=== PATIENT | male | born 1985 | race Caucasian/White ===

== ENCOUNTER 2020-03-05 18:06 | Emergency (ER) | payer BC, OTHER ==
[2020-03-05 18:19] VITALS: BP 169/96; PULSE 85
[2020-03-05] MEDS ORDERED: FLU VACC QS2020-21(6MOS UP)/PF 60 MCG/0.5 ML SYRINGE IM ONE (18:30)
[2020-03-05] MEDS ORDERED: Aspirin 81 MG Tab.Chew PO ONE (18:57)
--- NOTE | 2020-03-05 18:57 | EDM.PDOC ---
ED HPI GENERAL MEDICAL PROBLEM - General Chief Complaint: Chest Pain Stated Complaint: PAIN RIGHT ARM CHEST PAIN Time Seen by Provider: 03/05/20 18:19 Source of Information: Reports: Patient History Limitations: Reports: No Limitations - History of Present Illness INITIAL COMMENTS - FREE TEXT/NARRATIVE: Patient is a 34-year-old male presenting to the emergency department with acute onset of right sided chest and shoulder pain approximately 1-1/2 hours prior to presenting to the ER. He states that he was washing dishes when he started developed some discomfort in his right shoulder. He went and sat down for a while. States the pain progressively moved into his right chest. Describes it as a tightness. Pain has improved somewhat but is still there. He does not describe it as being overly painful but "he knows that it is there". He denies any past history of cardiac abnormalities or any other significant cardiac history. He has not done any heavy lifting or other activities out of the normal for him. He does have a fairly strong family history of NM's. States his dad had his first heart attack in his early 40s as did his grandfather. He denies any shortness of breath or diaphoresis associated with this. He is not taking any medications for pain. Right Chest Pain Score (Numeric/FACES): 5 - Related Data Allergies Allergy/AdvReac Type Severity Reaction Status Date / Time No Known Allergies Allergy Verified 03/05/20 18:19 Home Meds: Home Meds . [No Known Home Meds] 03/05/20 [History] Past Medical History - Past Health History Medical/Surgical History: Denies Medical/Surgical History Endocrine/Metabolic History: Reports: Obesity/BMI 30+ Social & Family History - Tobacco Use Smoking Status *Q: Current Every Day Smoker Years of Tobacco use: 1 Packs/Tins Daily: 0.2 - Caffeine Use Caffeine Use: Reports: None - Recreational Drug Use Recreational Drug Use: No ED ROS GENERAL - Review of Systems Review Of Systems: See Below Constitutional: Reports: No Symptoms. Denies: Fever, Chills, Weakness HEENT: Reports: No Symptoms Respiratory: Reports: No Symptoms. Denies: Shortness of Breath, Cough Cardiovascular: Reports: Chest Pain. Denies: Dyspnea on Exertion, Edema, Lightheadedness, Palpitations, Syncope Endocrine: Reports: No Symptoms GI/Abdominal: Reports: No Symptoms. Denies: Abdominal Pain, Nausea, Vomiting : Reports: No Symptoms Musculoskeletal: Reports: Shoulder Pain (right) Skin: Reports: No Symptoms Neurological: Reports: No Symptoms Psychiatric: Reports: No Symptoms Hematologic/Lymphatic: Reports: No Symptoms Immunologic: Reports: No Symptoms ED EXAM, GENERAL - Physical Exam Exam: See Below General Appearance: Alert, WD/WN, No Apparent Distress Respiratory/Chest: No Respiratory Distress, Lungs Clear, Normal Breath Sounds, No Accessory Muscle Use, Chest Non-Tender Cardiovascular: Normal Peripheral Pulses, Regular Rate, Rhythm, No Edema, No Gallop, No JVD, No Murmur, No Rub GI/Abdominal: Normal Bowel Sounds, Soft, Non-Tender, No Organomegaly, No Distention, No Abnormal Bruit, No Mass Neurological: Alert, Oriented, CN II-XII Intact, Normal Cognition, Normal Gait, Normal Reflexes, No Motor/Sensory Deficits Psychiatric: Normal Affect, Normal Mood Skin Exam: Warm, Dry, Intact, Normal Color, No Rash EKG INTERPRETATION EKG Date: 03/05/20 Time: 18:30 Rhythm: NSR Rate (Beats/Min): 75 [place]: Normal P-Wave: Present QRS: Normal ST-T: Normal QT: Normal EKG Interpretation Comments: Sinus rhythm at 75/min Consider left atrial hypertrophy Otherwise normal EKG EKG interpreted by Dr. Elma MAHONEY. Course - Vital Signs Last Recorded V/S: Last Vital Signs Temp 96.6 F L 03/05/20 18:17 Pulse 85 03/05/20 18:17 Resp 16 03/05/20 18:17 BP 169/96 H 03/05/20 18:17 Pulse Ox 96 03/05/20 18:17 - Orders/Labs/Meds Orders: Active Orders 24 hr Category Date Time Status EKG Documentation Completion [RC] STAT Care 03/05/20 18:24 Active Influenza Vaccine Charge [RC] .DISCHARGE Care 03/05/20 18:21 Active Chest 2V [CR] Stat Exams 03/05/20 18:24 Taken Labs: Laboratory Tests 03/05/20 03/05/20 03/05/20 Range/Units 18:45 18:45 18:45 WBC 9.59 H (4.23-9.07) K/mm3 RBC 5.15 (4.63-6.08) M/mm3 Hgb 14.6 (13.7-17.5) gm/dl Hct 44.9 (40.1-51.0) % MCV 87.2 (79.0-92.2) fl MCH 28.3 (25.7-32.2) pg MCHC 32.5 (32.2-35.5) g/dl RDW Std Deviation 42.4 (35.1-43.9) fL Plt Count 196 (163-337) K/mm3 MPV 10.9 (9.4-12.3) fl Neut % (Auto) 63.2 (34.0-67.9) % Lymph % (Auto) 25.0 (21.8-53.1) % [place] % (Auto) 7.6 (5.3-12.2) % Eos % (Auto) 3.8 (0.8-7.0) Baso % (Auto) 0.2 (0.1-1.2) % Neut # (Auto) 6.06 H (1.78-5.38) K/mm3 Lymph # (Auto) 2.40 (1.32-3.57) K/mm3 [place] # (Auto) 0.73 (0.30-0.82) K/mm3 Eos # (Auto) 0.36 (0.04-0.54) K/mm3 Baso # (Auto) 0.02 (0.01-0.08) K/mm3 D-Dimer, Quantitative 0.28 (0.19-0.50) mg/L Sodium 142 (136-145) mEq/L Potassium 3.9 (3.5-5.1) mEq/L Chloride 104 (98-107) mEq/L Carbon Dioxide 26 (21-32) mEq/L Anion Gap 15.9 H (5-15) BUN 17 (7-18) mg/dL Creatinine 1.2 (0.7-1.3) mg/dL Est Cr Clr Drug Dosing 111.38 mL/min Estimated GFR (MDRD) > 60 (>60) mL/min BUN/Creatinine Ratio 14.2 (14-18) Glucose 101 (74-106) mg/dL Calcium 8.8 (8.5-10.1) mg/dL Total Bilirubin 0.4 (0.2-1.0) mg/dL AST 24 (15-37) U/L ALT 47 (16-63) U/L Alkaline Phosphatase 39 L (46-116) U/L Troponin I < 0.017 (0.00-0.056) ng/mL C-Reactive Protein 1.1 H* (<1.0) mg/dL Total Protein 7.1 (6.4-8.2) g/dl Albumin 3.9 (3.4-5.0) g/dl Globulin 3.2 gm/dL Albumin/Globulin Ratio 1.2 (1-2) Meds: Medications Discontinued Medications Generic Name Dose Route Start Last Admin Trade Name Rupali PRN Reason Stop Dose Admin Aspirin 324 mg 03/05/20 18:57 Aspirin PO 03/05/20 18:58 ONETIME ONE Influenza Virus Vaccine 1 each 03/05/20 18:21 Pharmacy To Dose - Influenza Vaccine IM 03/05/20 18:22 ONETIME ONE Influenza Virus Vaccine 60 mcg 03/05/20 18:30 03/05/20 18:36 Fluzone Quad [id number] Syringe IM 03/05/20 18:31 60 mcg .ONCE ONE Administration - Re-Assessments/Exams Free Text/Narrative Re-Assessment/Exam: Patient is a 34-year-old male presenting to the emergency department with complaints of right shoulder discomfort and tightness in his right chest. Symptoms began about an hour and a half prior to coming to the ER. Pain has improved but he states that he can still feel that it is there. Denies any significant cardiac history, however he does have a family history of MIs at a fairly young age. I have ordered a CBC, CMP, CRP, troponin, d-dimer, 2 view chest x-ray, and EKG. 03/05/20 20:00 Hematology was grossly unremarkable. D-dimer was normal. Troponin was less than 0.017. Chest x-ray showed no acute abnormalities. EKG showed no acute abnormalities.I recommended that he stay to have a repeat troponin drawn at around 2100 to ensure there is no cardiac involvement; however, he declined. Stated "I am not overly concerned with it ". Discussed with him that if he should experience any new or worsening symptoms of concern, he should return to the emergency department. He agreed to this. Discharge instructions as documented. Departure - Departure Time of Disposition: 20:01 Disposition: Home, Self-Care 01 Condition: Good Clinical Impression: Atypical chest pain Instructions: Nonspecific Chest Pain, Adult Referrals: PCP,None [Primary Care Provider] - Forms: ED Department Discharge Additional Instructions: You were seen in the emergency department this evening for pain to your right shoulder as well as tightness in your right chest. Work-up included blood work, an EKG of your heart, and a chest x-ray. Your work-up was found to be normal. There was no evidence that you are having a heart attack or that there is a blood clot in your lungs. It was recommended that we repeat check a cardiac enzyme around 9 PM this evening to ensure that it is not trending upward, however this was declined. Recommend that you continue to monitor your symptoms at home. If you should experience any new or worsening symptoms of concern, please do not hesitate to return to the emergency department for reevaluation. Sepsis Event Note (ED) - Evaluation Sepsis Screening Result: No Definite Risk - Focused Exam Vital Signs: Vital Signs Temp Pulse Resp BP Pulse Ox 03/05/20 18:17 96.6 F L 85 16 169/96 H 96 - My Orders Last 24 Hours: My Active Orders 03/05/20 18:21 Influenza Vaccine Charge [RC] .DISCHARGE 03/05/20 18:24 EKG Documentation Completion [RC] STAT Chest 2V [CR] Stat - Assessment/Plan Last 24 Hours: My Active Orders 03/05/20 18:21 Influenza Vaccine Charge [RC] .DISCHARGE 03/05/20 18:24 EKG Documentation Completion [RC] STAT Chest 2V [CR] Stat
== END 2020-03-05 20:33 | disposition home or self-care (01) ==
LOC: JD.ED 18:06
DX: R07.89 Other chest pain (principal); M25.511 Pain in right shoulder; Z23 Encounter for immunization; E66.9 Obesity, unspecified; Z68.41 Body mass index [BMI] 40.0-44.9, adult; F17.210 Nicotine dependence, cigarettes, uncomplicated
CPT/HCPCS: 36415; 71046; 80053; 84484; 85025; 85379; 86140; 90686; 93005; 93010; 99283; 99285-25; G0008